=== PATIENT | male | born 1990 | race African-American/Black ===

== ENCOUNTER 2021-12-27 08:31 | Emergency (ER) | payer OTHER, SELFPAY ==
--- NOTE | ~2021-12-27 | XR_ITS ---
EXAMINATION: XR humerus LT DATE: 12/27/2021 09:08 INDICATION: Left upper arm laceration. TECHNIQUE: 2 views of left humerus on 3 radiographs were obtained. COMPARISON: None. FINDINGS: Bone alignment is normal. No fracture. Joint spaces are well maintained. No radiopaque fore ign body. IMPRESSION: 1. Normal left humerus. Reviewed, dictated and finalized at location A. IMPRESSION: 1. Normal left humerus.
[2021-12-27 08:45] VITALS: BP 143/90; PULSE 86; RESP 16; TEMP 36.8; O2SAT 100
--- NOTE | 2021-12-27 09:14 | ED.SKABFB ---
HPI - Skin/Abscess/Foreign Bdy General Chief complaint: Skin/Abscess/Foreign Body Stated complaint: Lacerstion on Arm Time Seen by Provider: 12/27/21 09:14 Source: patient Mode of arrival: ambulatory Limitations: no limitations History of Present Illness HPI narrative: 31-year-old male presents with laceration to left upper arm. States that he was cleaning and had scratched and try to grab something off of a high shelf in the whole shelf fell down. Thinks that the corner of the shelf is what caused laceration. Injury occurred around 6 AM this morning. Was able to get bleeding to stop. Unsure of last tetanus. All systems reviewed and negative except as noted above. Related Data Allergies Allergy/AdvReac Type Severity Reaction Status Date / Time No Known Allergies Allergy Verified 12/27/21 09:16 Review of Systems Review of Systems: CONSTITUTIONAL: Denies fever, chills, or sweats. EYES: Denies visual changes, redness, or discharge. ENT: Denies rhinorrhea, congestion, sore throat, or otalgia. CARDIOVASCULAR: Denies chest pain, palpitations, or edema. RESPIRATORY: Denies cough or dyspnea. GASTROINTESTINAL: Denies abdominal pain, nausea, vomiting, or diarrhea. GENITOURINARY: Denies dysuria or hematuria. SKIN: Denies rash or itching. Laceration to left upper arm. MUSCULOSKELETAL: Denies back pain, joint pain, or myalgia. NEUROLOGIC: Denies headache, numbness, or weakness. PSYCHIATRIC: Denies anxiety or depression. All other systems reviewed are negative, except as documented in HPI. PMFSH Comments At time of signature, agree with nursing past medical, surgical, social and family history. There is no relevant family history pertinent to the presenting complaint. Exam Narrative: GENERAL: This is a well-nourished, well-developed patient, in no apparent distress. HEAD: normocephalic, atraumatic. EYES: PERRL. Sclera clear/white. Vision is grossly intact. EARS: External ears normal NOSE: External nose normal NECK: Neck supple, non-tender without lymphadenopathy, masses or thyromegaly. CARDIOVASCULAR: Regular rate and rhythm without murmurs, gallops, or rubs. RESPIRATORY: Clear to auscultation. Breath sounds equal bilaterally. No wheezes, rales, or rhonchi. SKIN: warm, Dry, with no suspicious lesions or rash, good texture and turgor. 5 to 6 cm laceration to lateral aspect left upper arm, bleeding controlled. NEURO: awake, alert, and oriented to person, place and time. There were no obvious focal neurologic abnormalities. EXTREMITIES: Normal range of motion to all extremities. Course Course Level of Care: Express Care Visit Vital Signs Vital signs: Vital Signs Temperature 36.8 C 12/27/21 08:45 Pulse Rate 86 12/27/21 08:45 Respiratory Rate 16 12/27/21 08:45 Blood Pressure 143/90 H 12/27/21 08:45 Pulse Oximetry 100 12/27/21 08:45 Temperature 36.8 C 12/27/21 08:45 Pulse Rate 86 12/27/21 08:45 Respiratory Rate 16 12/27/21 08:45 Blood Pressure 143/90 H 12/27/21 08:45 Pulse Oximetry 100 12/27/21 08:45 Procedures Laceration Laceration 1: Date: 12/27/21 Time: 14:49 Site: upper extremity Side (If applicable): left Size (cm): 6 Description: linear Depth: simple, single layer Local Anesthetic: lidocaine 1% Amount of anesthesia used (mL): 5 Pre-repair: wound explored and irrigated ====== Skin Level ====== Skin layer closed with: nylon Size (cm): 4-0 Number of sutures: 10 Technique: simple, interrupted ====== Subcutaneous Layer ====== ====== Muscle Layer ====== ====== Tendon Layer ====== Dressing: Nonadherent and gauze applied MDM - Skin/Abscess/Foreign Bdy MDM Narrative Medical decision making narrative: Patient is aware of diagnosis, understands and agrees to treatment plan. Anticipatory guidance given. Patient agrees to follow-up as directed and is aware of reas
[2021-12-27] MEDS: TETANUS,DIPHTHERIA,AC PERTUSSIS ADULT (0.5 ML) BOOSTRIX IM (09:26)
--- NOTE | 2021-12-27 10:19 | PC.NURSE ---
Pt felt fine after Tdap vaccination
== END 2021-12-27 10:04 | disposition home or self-care (01) ==
PROVIDERS: Emergency Provider Nurse Practitioner Family
DX: S41.112A Laceration without foreign body of left upper arm, initial encounter (principal); W20.8XXA Other cause of strike by thrown, projected or falling object, initial encounter; Z23 Encounter for immunization
CPT/HCPCS: 12002; 73060; 90471; 90715; 99213; G0463